=== PATIENT | female | born 1965 | race Caucasian/White ===

== ENCOUNTER 2021-11-16 15:58 | Emergency (ER) | payer OTHER, SELFPAY ==
[2021-11-16] VITALS (11 sets, daily range): BP systolic 116–179; BP diastolic 65–106; PULSE 70–97; RESP 17–20; TEMP 36.6; O2SAT 67–99; BMI 30.9
[2021-11-16 16:58] LABS: Add Manual Diff / Slide Review NO; Basophils Absolute Auto 100 /uL (0-100); Basophils Percent Auto 1.3 % (0-2); Eosinophils Absolute Auto 300 /uL (0-450); Eosinophils Percent Auto 4.1 % (2-4); Hematocrit 39.6 % (36-46); Hemoglobin 13.2 g/dL (12.0-16.0); Lymphocytes Absolute Auto 2800 /uL (1100-4500); Lymphocytes Percent Auto 34.7 % (25-40); Mean Corpuscular HGB Conc 33.3 % (30-36); Mean Corpuscular Hemoglobin 28.6 PG (26-34); Mean Corpuscular Volume 85.8 fL (80-100); Monocytes Absolute Auto 600 /uL (0-900); Monocytes Percent Auto 7.6 % (3-14); Neutrophils Absolute Auto 4200 /uL (1500-7000); Neutrophils Percent Auto 52.3 % (50-75); Platelet Count 395 X10^3/uL (150-400); Red Blood Cell Count 4.61 X10^6/uL (4.0-5.2); Red Cell Distribution Width 13.8 % (11.6-14.8); White Blood Cell Count 8.1 X10^3/uL (4.5-11.0)
[2021-11-16 17:12] LABS: Alanine Aminotransferase 19 IU/L (<35); Albumin 4.5 g/dL (3.5-5.0); Albumin Globulin Ratio 1.4 (1.0-2.8); Alkaline Phosphatase 67 U/L (38-126); Aspartate Aminotransferase 23 IU/L (14-36); BUN Creatinine Ratio 16.3 (6-22); Bilirubin Total 0.3 mg/dL (0.2-1.3); Blood Urea Nitrogen 14 mg/dL (7-17); Calcium 9.5 mg/dL (8.4-10.2); Carbon Dioxide 30 mmol/L (22-32); Chloride 106 mmol/L (98-107); Estimated Glomerular Filt Rate > 60.0 mL/min (>60); Globulin 3.2 g/dL (1.7-4.1); Glucose 98 mg/dL (70-100); HEMOLYSIS < 15 (0-50); Lipase 145 U/L (23-300); Potassium 4.3 mmol/L (3.4-5.1); Sodium 139 mmol/L (137-145); Total Protein 7.7 g/dL (6.3-8.2)
[2021-11-16 17:38] LABS: Amorphous Sediment Urine 1+; Bacteria Urine Few (2-10); RBC Urine 0-1/HPF (0-5/HPF); Squamous Epithelial Cell Urine 5-10 /HPF (0-5/HPF); WBC Urine 10-30/HPF (0-5/HPF)
[2021-11-16 17:39] LABS: Mucus Urine 1+ (Negative)
--- NOTE | 2021-11-16 18:47 | DI.US.S_ITS ---
PROCEDURE: US ABDOMEN LIMITED INDICATIONS: ruq pain TECHNIQUE: Real-time scanning was performed of the right upper quadrant, with image documentation. COMPARISON: Formerly [facility], CT, KIDNEY/ URETER/BLADDER, 07/03/2015, 1:44. FINDINGS: Liver: Normal size. Increased in echogenicity. Gallbladder: Nondilated. No stones or sludge. Normal gallbladder wall thickness. No pericholecystic fluid. Negative sonographic Walker's sign. Biliary ducts: Intrahepatic bile ducts are non-dilated. Extrahepatic bile duct caliber measures 3 mm. Normal is 6-7 mm or less in diameter, or 10 mm or less post-cholecystectomy. Pancreas: Visualized portions of the pancreas are sonographically normal. Spleen: Spleen is normal in size and homogeneous in echotexture. IMPRESSION: Exam is technically difficult due to non NPO status and acoustic windows. 1. No acute cholecystitis demonstrated. No gallstones. 2. Increased hepatic echogenicity most consistent with hepatic steatosis. Other forms of hepatocellular disease could have similar appearance. Dictated by: Guillermo Jones M.D. on 11/16/2021 at 21:40 Approved by: Guillermo Jones M.D. on 11/16/2021 at 21:42
--- NOTE | 2021-11-16 18:47 | ED.ABDPAIN ---
HPI - Abdominal Pain General Chief Complaint: Abdominal Pain Stated Complaint: rt sided pain Time Seen by Provider: 11/16/21 18:47 Source: patient Mode of arrival: Ambulatory History of Present Illness HPI narrative: Patient is a 55-year-old female with history of ADHD, hyperlipidemia, hypertension who presents with right upper quadrant pain on going for the last 3 nights. She says every time she goes to sleep she sleeps for a little while and then has intense pain right side wakes her up. She is unable to back to sleep, she just gets up in works. She occasionally feels nauseated but no vomiting she does not take anything for pain. She has previously had kidney stones this does not feel like kidney stone pain she has no radiation into her groin she has not had any painful or frequent urination no hematuria. Related Data Home Medications Medication Instructions Recorded Confirmed Fish Oil (Fish Oil 500 MG Softgel) 500 mg PO QDAY #0 01/10/13 aspirin 81 mg chewable tablet #0 01/10/13 dextroamphetamine-amphetamine ER 1 cap PO DAILY 11/16/21 11/16/21 20 mg 24hr capsule,extend release lisinopril 10 mg tablet 10 mg PO DAILY 11/16/21 11/16/21 simvastatin 20 mg tablet 20 mg PO DAILY 11/16/21 11/16/21 Allergies Allergy/AdvReac Type Severity Reaction Status Date / Time codeine [CODEINE] AdvReac Mild ITCHY Verified 11/16/21 16:35 Review of Systems Review of Systems Narrative: GENERAL: Denies chills, fatigue, malaise, fever, sweats, travel HEENT: Denies sinus pain, ear pain, sore throat, difficulty swallowing, neck pain RESPIRATORY: Denies dyspnea, cough, wheezing, hemoptysis, sputum. CARDIOVASCULAR: Denies chest pain, palpitations, orthopnea, edema GASTROINTESTINAL: See HPI : Denies dysuria, frequency, incontinence, hematuria, urinary retention, flank pain. MUSCULOSKELETAL: Denies weakness, joint pain, or bony pain SKIN: No rash, no erythema, no pruritus NEUROLOGIC: Denies weakness, dizziness, headache, numbness, change in speech, confusion PSYCHIATRIC: No concerning psychosocial issues. 12 point review of systems is negative except for those stated above and HPI Patient History Social History Smoking Status: Never smoker Smoking Status: Never smoker alcohol intake frequency: a few times a week Substance Use Type: does not use Exam Initial Vital Signs Initial Vital Signs: Vital Signs Temperature 98 F 11/16/21 16:33 Pulse Rate 97 H 11/16/21 16:33 Respiratory Rate 17 11/16/21 16:33 Blood Pressure 179/86 H 11/16/21 16:33 Pulse Oximetry 97 11/16/21 16:33 GENERAL: Well-appearing, well-nourished and in no acute distress. HEENT: Head atraumatic,EOMI, pupils reactive, face symmetric, moist mucous membranes CARDIOVASCULAR: Regular rate and rhythm without murmurs, rubs or gallops. RESPIRATORY: Breath sounds equal bilaterally, no wheezes rales or rhonchi. ABDOMEN: Soft, mild tenderness in right upper quadrant negative Walker sign no guarding or rebound : No CVA tenderness EXTREMITIES: Normal range of motion, no clubbing or edema. Neurovascularly intact NEUROLOGICAL: Alert and oriented x4.Normal gait and speech. SKIN: Warm, dry, no laceration, no petechiae, no rashes or lesions. Course Orders Ordered: ED Orders 11/16/21 16:37 EKG-12 Lead Stat 11/16/21 16:43 Complete Blood Count AUTO DIFF Stat Comprehensive Metabolic Panel Stat Lipase Stat Urine Culture Stat Urine Microscopic Stat 11/16/21 18:47 US abdomen limited Stat Vital Signs Vital signs: Vital Signs - 8 hr 11/16/21 16:33 11/16/21 18:43 11/16/21 19:00 Temperature 98 F Pulse Rate 97 H 74 86 Respiratory Rate 17 Blood Pressure 179/86 H 153/97 H Pulse Oximetry 97 98 99 11/16/21 19:01 11/16/21 19:30 11/16/21 20:00 Temperature Pulse Rate 85 82 75 Respiratory Rate Blood Pressure 143/65 H 140/87 146/80 H Pulse Oximetry 99 74 L 67 L 11/16/21 20:30 11/16/21 20:31 11/16/21 21:00 Temperature Pulse Rate 76 77 70 Respiratory Rate 20 Blood Pressure 132/106 H 123/68 Pulse Oximetry 99 97 99 11/16/21 21:30 11/16/21 21:52 Temperature Pulse Rate 76 74 Respiratory Rate Blood Pressure 116/65 Pulse Oximetry 97 98 MDM - Abdominal Pain Lab Data Result diagrams: 11/16/21 16:43 11/16/21 16:43 Labs: Lab Results 11/16/21 11/16/21 11/16/21 Range/Units 16:43 16:43 16:43 WBC 8.1 (4.5-11.0) X10^3/uL RBC 4.61 (4.0-5.2) X10^6/uL Hgb 13.2 (12.0-16.0) g/dL Hct 39.6 (36-46) % MCV 85.8 (80-100) fL MCH 28.6 (26-34) PG MCHC 33.3 (30-36) % RDW 13.8 (11.6-14.8) % Plt Count 395 (150-400) X10^3/uL Neut % (Auto) 52.3 (50-75) % Lymph % (Auto) 34.7 (25-40) % Garden % (Auto) 7.6 (3-14) % Eos % (Auto) 4.1 H (2-4) % Baso % (Auto) 1.3 (0-2) % Neut # (Auto) 4200 (2244-9158) /uL Lymph # (Auto) 2800 (8549-3041) /uL Garden # (Auto) 600 (0-900) /uL Eos # (Auto) 300 (0-450) /uL Baso # (Auto) 100 (0-100) /uL Sodium 139 (137-145) mmol/L Potassium 4.3 (3.4-5.1) mmol/L Chloride 106 (98-107) mmol/L Carbon Dioxide 30 (22-32) mmol/L BUN 14 (7-17) mg/dL Creatinine 0.86 (0.52-1.04) mg/dL Estimated GFR > 60.0 (>60) mL/min BUN/Creatinine Ratio 16.3 (6-22) Glucose 98 (70-100) mg/dL Calcium 9.5 (8.4-10.2) mg/dL Total Bilirubin 0.3 (0.2-1.3) mg/dL AST 23 (14-36) IU/L ALT 19 (<35) IU/L Alkaline Phosphatase 67 (38-126) U/L Total Protein 7.7 (6.3-8.2) g/dL Albumin 4.5 (3.5-5.0) g/dL Globulin 3.2 (1.7-4.1) g/dL Albumin/Globulin Ratio 1.4 (1.0-2.8) Lipase 145 (23-300) U/L Urine RBC 0-1/hpf (0-5/HPF) Urine WBC 10-30/hpf H (0-5/HPF) Ur Squamous Epith Cells 5-10 /hpf H (0-5/HPF) Amorphous Sediment 1+ Urine Bacteria Few (2-10) H (None) Urine Mucus 1+ H (Negative) Ur Culture Indicated? Culture not indicate Point of care testing: Urine Dip Bedside Urine Glucose Negative Bedside Urine Bilirubin - Negative Bedside Urine Ketone - Negative Urine Specific [place] 1.020 Bedside Urine Occult Blood +/- Bedside Urine pH 6.5 Bedside Urine Protein + 30 Bedside Urine Urobilinogen - Negative Bedside Urine Nitrite - Negative Bedside Urine Leukocytes ++ 125 Esterase Imaging Data US - abdomen: Radiologist's Impression: PROCEDURE:? US ABDOMEN LIMITED ? INDICATIONS:? ruq pain ? TECHNIQUE:? Real-time scanning was performed of the right upper quadrant, with image documentation.? ? COMPARISON:? Formerly [facility], CT, KIDNEY/ URETER/BLADDER, 07/03/2015, 1:44. ? FINDINGS:? ? Liver:? Normal size.? Increased in echogenicity. ? Gallbladder:? Nondilated. No stones or sludge. Normal gallbladder wall thickness. No pericholecystic fluid. Negative sonographic Walker's sign.? ? Biliary ducts:? Intrahepatic bile ducts are non-dilated.? Extrahepatic bile duct caliber measures 3 mm.? Normal is 6-7 mm or less in diameter, or 10 mm or less post-cholecystectomy.? ? Pancreas:? Visualized portions of the pancreas are sonographically normal.? ? Spleen:? Spleen is normal in size and homogeneous in echotexture.? ? IMPRESSION:? Exam is technically difficult due to non NPO status and acoustic windows. ? 1. No acute cholecystitis demonstrated.? No gallstones. ? 2. Increased hepatic echogenicity most consistent with hepatic steatosis. Other forms of hepatocellular disease could have similar appearance. ? ? ? Dictated by: Guillermo Jones M.D. on 11/16/2021 at 21:40 ? ? Approved by: Guillermo Jones M.D. on 11/16/2021 at 21:42 ? MDM Narrative Medical decision making narrative: The patient is having right upper quadrant pain he at times a day. Blood work and ultrasound were overall reassuring. This not really flank pain. We discussed CT however at this time she off to go home and return if symptoms are worsening which I think is very reasonable. She says that she has previously had kidney stones and this feels nothing like a kidney stone. She has no painful or frequent urination or sign of UTI. Possible musculoskeletal strain I recommend taking ibuprofen or Tylenol before bed to see if that helps. Discharge Plan Departure Patient Disposition: Home Clinical Impression: Abdominal pain Instructions: DI for Abdominal Pain-Adult Activity Restrictions/Additional Instructions: *You have been diagnosed with abdominal pain *What to do: At this time ultrasound blood work were overall reassuring. I recommend taking Tylenol or Motrin as directed before bed see if helps. The pain is worsening please return to emergency department for further imaging such as a CT scan. *Continue to take medications as directed Motrin 600 mg every 6 hours if needed [id number] pain Tylenol 650 mg every 4-6 hours if needed for [id number] *Follow up with your primary care provider in 2-3 days [and follow up with ortho, urology etc] *Return to ER if you should have [such as] [or] any new, worsening or concerning symptoms Prescriptions: No Action aspirin 81 MG tablet,chewable Qty: 0 0RF Fish Oil (Fish Oil 500 MG Softgel) 500 mg PO QDAY Qty: 0 0RF dextroamphetamine-amphetamine 20 mg capsule,extended release 24hr 1 cap PO DAILY 0RF simvastatin 20 mg tablet 20 mg PO DAILY 0RF lisinopril 10 mg tablet 10 mg PO DAILY 0RF Referrals: Arin Reyna MD [Primary Care Provider] -
== END 2021-11-16 21:55 | disposition home or self-care (01) ==
PROVIDERS: Emergency Medicine; Emergency Provider Emergency Medicine; PCP Student in an Organized Health Care Education/Training Program; Referring Provider Student in an Organized Health Care Education/Training Program
DX: R10.11 Right upper quadrant pain (principal); Z88.5 Allergy status to narcotic agent
CPT/HCPCS: 36415; 76705; 80053; 81003; 81015; 83690; 85025; 87077; 87086; 87186; 93005; 93010; 99284

== ENCOUNTER → 2023-01-05 08:26 | Outpatient (CLI) | payer OTHER, SELFPAY ==
[2023-01-05 09:18] LABS: Add Manual Diff / Slide Review NO; Basophils Absolute Auto 100 /uL (0-100); Basophils Percent Auto 0.9 % (0-2); Eosinophils Absolute Auto 300 /uL (0-450); Eosinophils Percent Auto 3.8 % (2-4); Hematocrit 38.1 % (36-46); Hemoglobin 12.7 g/dL (12.0-16.0); Lymphocytes Absolute Auto 2400 /uL (1100-4500); Lymphocytes Percent Auto 35.5 % (25-40); Mean Corpuscular HGB Conc 33.3 % (30-36); Mean Corpuscular Hemoglobin 28.6 PG (26-34); Monocytes Absolute Auto 500 /uL (0-900); Monocytes Percent Auto 7.2 % (3-14); Neutrophils Absolute Auto 3500 /uL (1500-7000); Neutrophils Percent Auto 52.6 % (50-75); Platelet Count 362 X10^3/uL (150-400); Red Blood Cell Count 4.44 X10^6/uL (4.0-5.2); Red Cell Distribution Width 13.2 % (11.6-14.8); White Blood Cell Count 6.7 X10^3/uL (4.5-11.0)
[2023-01-05 09:58] LABS: Alanine Aminotransferase 22 IU/L (<35); Albumin 3.9 g/dL (3.5-5.0); Albumin Globulin Ratio 1.3 (1.0-2.8); Alkaline Phosphatase 69 U/L (38-126); Aspartate Aminotransferase 24 IU/L (14-36); BUN Creatinine Ratio 16.3 (6-22); Bilirubin Total 0.3 mg/dL (0.2-1.3); Blood Urea Nitrogen 13 mg/dL (7-17); Calcium 8.8 mg/dL (8.4-10.2); Carbon Dioxide 29 mmol/L (22-32); Chloride 101 mmol/L (98-107); Cholesterol 173 mg/dL (140-199); Estimated Glomerular Filt Rate > 60 mL/min (>60); Globulin 2.9 g/dL (1.7-4.1); Glucose 101 mg/dL (70-100); HDL Cholesterol 52 mg/dL (40-60); HEMOLYSIS < 15 (0-50); LDL Cholesterol Calculated 102 mg/dL (<100); Potassium 4.5 mmol/L (3.4-5.1); Sodium 136 mmol/L (137-145); Total Protein 6.8 g/dL (6.3-8.2); Triglycerides 96 mg/dL (35-150)
[2023-01-05 10:29] LABS: TSH w/ Reflex to FT4 0.69 uIU/mL (0.47-4.68)
== END ==
PROVIDERS: PCP Family Medicine; Referring Provider Family Medicine; Visit Provider Family Medicine
DX: Z00.00 Encounter for general adult medical examination without abnormal findings (principal); R73.03 Prediabetes; I10 Essential (primary) hypertension; F90.0 Attention-deficit hyperactivity disorder, predominantly inattentive type; Z79.890 Hormone replacement therapy; F41.8 Other specified anxiety disorders; E78.5 Hyperlipidemia, unspecified
CPT/HCPCS: 36415; 80053; 80061; 83036; 84443; 85025